=== PATIENT | male | born 1955 | race Caucasian/White ===

== ENCOUNTER 2022-04-15 10:03 | Outpatient (CLI) | payer MEDICARE, BC, SELFPAY ==
[2022-04-15 14:27] LABS: Chloride* 103 mmol/L (96-114); Potassium* 4.8 mmol/L (3.6-5.1); Sodium* 139 mmol/L (135-149)
[2022-04-15 14:29] LABS: Cholesterol* 203 mg/dL (90-199); Estimated Glomerular Filt Rate 82 ml/min
[2022-04-15 14:30] LABS: Blood Urea Nitrogen* 23 mg/dL (7-30); Calcium* 9.3 mg/dL (8.4-10.6); Carbon Dioxide* 29 mmol/L (20-32); Glucose* 91 mg/dL (60-115); Triglycerides* 139 mg/dL (40-149)
[2022-04-15 14:31] LABS: HDL Cholesterol* 60 mg/dL (>=40); LDL Cholesterol Calculated 115 mg/dL (<100)
[2022-04-15 15:00] LABS: PSA Screen* 2.43 ng/mL (0.10-4.00)
== END 2022-04-15 10:04 | disposition home or self-care (01) ==
PROVIDERS: PCP Family Medicine; Visit Provider Family Medicine
DX: Z00.00 Encounter for general adult medical examination without abnormal findings (principal); I10 Essential (primary) hypertension; Z12.5 Encounter for screening for malignant neoplasm of prostate; Z13.6 Encounter for screening for cardiovascular disorders
CPT/HCPCS: 80048; 80061; 84153

== ENCOUNTER 2023-05-03 11:13 | Outpatient (CLI) | payer MEDICARE, BC, SELFPAY | END 2023-05-03 11:14 | disposition home or self-care (01) | PROVIDERS: PCP Family Medicine; Visit Provider Family Medicine | DX: I10 Essential (primary) hypertension (principal); N43.3 Hydrocele, unspecified; Z13.6 Encounter for screening for cardiovascular disorders; Z12.5 Encounter for screening for malignant neoplasm of prostate | CPT/HCPCS: 80048; 80061; 84153 ==

== ENCOUNTER 2024-08-14 14:54 | Outpatient (CLI) | payer MEDICARE, BC, SELFPAY | END 2024-08-14 14:55 | disposition home or self-care (01) | PROVIDERS: PCP Family Medicine; Visit Provider Family Medicine | DX: I10 Essential (primary) hypertension (principal); Z12.5 Encounter for screening for malignant neoplasm of prostate; Z13.6 Encounter for screening for cardiovascular disorders | CPT/HCPCS: 80048; 80061; 85025; G0103 ==